=== PATIENT | female | born 1975 | race Caucasian/White ===

== ENCOUNTER 2019-10-23 11:10 | Emergency (ER) | payer SELFPAY ==
--- NOTE | 2019-10-23 12:36 | ED.PDOC ---
History of Present Illness - General Chief Complaint: Lower Extremity Injury Stated Complaint: right ankle pain Time Seen by Provider: 10/23/19 12:32 Source: patient - History of Present Illness Initial Comments: 44-year-old female who presents from work for chief complaint of right ankle and foot pain following injury at work. 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 She reports that her right foot became twisted inward and sustained injury along the lateral aspect of the right ankle. Reports constant 6/10 severity throbbing pain to the right lateral ankle which radiates into the foot, worse with palpation, movement, bearing weight, walking. Reports some redness of the skin and mild swelling but no deformity, weakness, numbness. Also reports moderate pain to the right hip, mild pain to the left lower quadrant abdomen, mild upper back pain between the shoulder blades. Denies any head or neck pain, LOC, chest pain, dyspnea. Reports nausea upon ED arrival. Allergies/Adverse Reactions: Allergies Morphine Allergy (Unverified 10/02/12 11:49) NSAIDs Allergy (Verified 10/23/19 12:47) Prochlorperazine [From Compazine] Allergy (Unverified 10/02/12 11:49) Review of Systems - Review of Systems Review of Systems: 10/23/19 12:36 As per HPI All other Systems: Reviewed and Negative Family Medical History - Family History Mother Family History: Unknown Physical Exam - Physical Exam General Appearance: Alert, Comfortable, No apparent distress Eyes, Ears, Nose, Throat: PERRL/EOMI, normal ENT inspection, pharynx normal Neck: non-tender, full range of motion, supple, normal inspection Cardiovascular/Respiratory: regular rate, rhythm, no M/R/G, normal peripheral pulses, no JVD, normal breath sounds, no respiratory distress Gastrointestinal/Abdominal: non-tender, no organomegaly Back: normal inspection, no CVA tenderness, no vertebral tenderness Thigh/Hip: normal inspection, non-tender, no evidence of injury, normal ROM Leg: normal inspection, non-tender, no evidence of injury, normal ROM Knee: normal inspection, non-tender, no evidence of injury, normal ROM Ankle: other - Right ankle appears with mild redness along the lateral component but otherwise without swelling, deformity, bruising. There is moderate tenderness to palpation to the lower lateral ankle. Moderately reduced range of motion of the ankle due to pain. Strength and sensation testing appear normal Foot: normal inspection, non-tender, no evidence of injury, normal ROM Neuro/Tendon: normal sensation, normal motor functions, normal tendon functions, responds to pain, no evidence tendon injury Mental Status: alert, oriented x 3 Skin: normal color, warm/dry Progress - Progress Progress: 10/23/19 12:37 Blunt trauma from filing cabinet -Consider injuries: Right ankle fracture, right foot fracture, right ankle sprain, contusion injuries. Consider other more serious injuries but seems very unlikely. -Obtain blood work, chest x-ray, x-ray of the right foot and ankle, pelvic x- ray, place PIV, 1 L NS bolus, Toradol 15 mg IV (reports NSAID allergy but states she has had Toradol many times without issue and it works well), Zofran 4 mg IV -Bedside FAST negative 10/23/19 14:27 -Patient remains stable, reports pain much improved following Toradol and rest. X-ray imaging reviewed and no acute processes noted. Lab work reveals anemia which is likely chronic but otherwise largely unremarkable. -Discussed diagnosis of contusion injury to the right ankle and likely right ankle sprain. Advised continued rest and [id number] analgesics. Gradual return to activity as tolerated. Will discharge to home in good condition, return warnings discussed. Oh Rodriguez MD Billing #[id number] 10/23/19 12:32 IV Care:Saline Lock per Protoc QSHIFT Telemetry .ONCE Sodium Chloride 0.9% (Flush) [Saline Flush Syringe] 10 ml IV PRN PRN 10/23/19 12:33 HCG,QUALITATIVE URINE Stat URINALYSIS Stat 10/24/19 09:00 Pulse Ox Daily Laboratory Results - last 24 hr 10/23/19 10/23/19 12:45 12:45 WBC 6.9 RBC 4.68 Hgb 11.3 L Hct 35.2 L MCV 75.1 L MCH 24.2 L MCHC 32.3 L RDW 14.7 H Plt Count 376 MPV 7.7 Absolute Neuts (auto) 3.40 Absolute Lymphs (auto) 2.60 Absolute Monos (auto) 0.60 Absolute Eos (auto) 0.30 Absolute Basos (auto) 0.10 Neutrophils % 48.6 Lymphocytes % 37.3 Monocytes % 8.8 Eosinophils % 4.1 Basophils % 1.2 Normal RBC Morphology Stain quality accept Sodium 137 Potassium 4.4 Chloride 107 Carbon Dioxide 24 Anion Gap 10.4 L BUN 15 Creatinine 1.07 BUN/Creatinine Ratio 14.0 Random Glucose 111 H Serum Osmolality 275.3 Calcium 8.9 Total Bilirubin 0.5 AST 16 ALT 15 Alkaline Phosphatase 51 Serum Total Protein 7.1 Albumin 4.2 Globulin 2.9 Albumin/Globulin Ratio 1.4 - EKG/XRAY/CT XRAY: chest - No acute processes per my read Departure - Departure Clinical Impression: Sprain of right ankle or foot, Contusion of right ankle, initial encounter Time of Disposition: 14:15 Disposition: Discharge to Home or Self Care Condition: Good Departure Forms: ED Discharge - Pt. Copy, Patient Portal Self Enrollment Instructions: Ankle Sprain (DC), Contusion (DC) Diet: resume usual diet Activity: increase activity as tolerated, walking as tolerated Referrals: Herminio Barnhart MD [Primary Care Provider] - 1-2 Weeks Additional Instructions: Elevate the right leg often and apply a cold pack for 15 to 20 minutes every 1-2 hours for the next 2 to 3 days to help limit pain and swelling. You may continue to take Tylenol 650 mg every 6 hours as needed for pain control. Return to the ED if you develop any concerning symptoms such as chest pain, shortness of breath, worsening abdominal pain, blood in the vomit or stool, etc. Follow-up with your regular doctor is recommended in the next 1 to 2 weeks or sooner as needed.
--- NOTE | 2019-10-23 13:20 | RAD ---
EXAM DESCRIPTION: Ankle,Right 3 Views CLINICAL HISTORY: 44 years Female, filing cabinet fell onto R ankle COMPARISON: None. FINDINGS: 3 views of the right ankle were obtained. There is no acute fracture or malalignment. The tibiotalar joint space and talar dome are well maintained. There is no soft tissue swelling. The calcaneus, subtalar joint and base of the 5th metatarsal are intact. There is no radiopaque foreign body or soft tissue gas. Tiny calcaneal enthesophytes at the plantar fascia and Achilles tendon insertions. IMPRESSION: No acute right ankle abnormality. Electronically signed by: Cornel Mckeon MD 10/23/2019 1:19 PM CDT
[2019-10-23] MEDS: SODIUM CHLORIDE 0.9% 1000ML 1,000 ML IVS ONE (13:21)
[2019-10-23] MEDS: KETOROLAC TROMETHAMINE INJ 30 MG/ML VIAL IV ONE (13:21)
[2019-10-23] MEDS: ONDANSETRON INJ 4 MG/2 ML VIAL IV ONE (13:21)
--- NOTE | 2019-10-23 13:21 | RAD ---
EXAM DESCRIPTION: Chest,1 View CLINICAL HISTORY: filing cabinet fell onto pt, upper back pain COMPARISON: None available FINDINGS: The cardiomediastinal silhouette is unremarkable. There is no airspace consolidation or pleural effusion. The bronchovascular markings are within normal limits, and the lungs are not hyperinflated. There is no pneumothorax or acute fracture. IMPRESSION: Negative exam. Electronically signed by: Cornel Mckeon MD 10/23/2019 1:19 PM CDT
[2019-10-23] MEDS: SODIUM CHLORIDE 0.9% (FLUSH) 10 ML SYG IV PRN (13:22)
--- NOTE | 2019-10-23 13:22 | RAD ---
EXAM DESCRIPTION: Pelvis CLINICAL HISTORY: 44 years Female, filing cabinet fell onto RLE COMPARISON: None. FINDINGS: Single AP view the pelvis was obtained. There is no acute fracture or malalignment. The hip and sacroiliac joints are unremarkable. The pubic symphysis is anatomically aligned. There is no focal bone lesion or suspicious soft tissue abnormality. IMPRESSION: Negative exam. If clinical suspicion of pelvic injury persists, CT should be considered. Electronically signed by: Cornel Mckeon MD 10/23/2019 1:20 PM CDT
--- NOTE | 2019-10-23 13:22 | RAD ---
EXAM DESCRIPTION: Foot,Right 3 Views CLINICAL HISTORY: 44 years Female, filing cabinet fell onto R ankle COMPARISON: None. FINDINGS: 3 views of the right foot show no acute fracture or malalignment. No radiopaque foreign body or soft tissue gas. Tiny calcaneal enthesophyte at the plantar fascia and Achilles tendon insertions. IMPRESSION: No acute right foot abnormality. Electronically signed by: Cornel Mckeon MD 10/23/2019 1:20 PM CDT
[2019-10-23 15:21] VITALS: BP 119/68; TEMP 98.1; O2SAT 96
== END 2019-10-23 15:15 | disposition home or self-care (01) ==
LOC: ER 11:10
DX: S93.401A Sprain of unspecified ligament of right ankle, initial encounter (principal); S90.01XA Contusion of right ankle, initial encounter; D64.9 Anemia, unspecified; R10.32 Left lower quadrant pain; R11.0 Nausea; W20.8XXA Other cause of strike by thrown, projected or falling object, initial encounter; Y92.89 Other specified places as the place of occurrence of the external cause; Y99.0 Civilian activity done for income or pay
CPT/HCPCS: 36415; 36416; 71045; 72170; 73610; 73630; 80053; 85025; 94760; J1885; J2405; J7030